=== PATIENT | female | born 1960 | race African-American/Black ===

== ENCOUNTER 2022-04-23 13:36 | Inpatient (IN) | payer OTHER ==
[2022-04-23 14:41] VITALS: BMI 27.8
[2022-04-23] MEDS ORDERED: chlordiazePOXIDE HCL 25 MG CAPSULE PO PRN ×2 (17:34→17:50)
[2022-04-23] MEDS ORDERED: ACETAMINOPHEN 325 MG TABLET (FP) PO PRN (17:50)
[2022-04-23] MEDS ORDERED: LOPERAMIDE HCL 2 MG CAPSULE PO PRN (17:50)
[2022-04-23] MEDS ORDERED: BENZOCAINE/MENTHOL (CHLORASEPTIC ) LOZENGE MM PRN (17:50)
[2022-04-23] MEDS ORDERED: IBUPROFEN 600 MG TABLET (FP) PO PRN (17:50)
[2022-04-23] MEDS ORDERED: BISMUTH SUBSALICYLATE 524 MG/30 ML PO PRN (17:50)
[2022-04-23] MEDS ORDERED: NALOXONE HCL (KLOXXADO) 8 MG SPRAY NS PRN (17:50)
[2022-04-23] MEDS ORDERED: METHOCARBAMOL 500 MG TABLET PO PRN (17:50)
[2022-04-23] MEDS ORDERED: hydrOXYzine PAMOATE 25 MG CAPSULE (FP) PO PRN (17:50)
[2022-04-23] MEDS ORDERED: MAG HYDROX/AL HYDROX/SIMETH 30 ML UNIT-DOSE CUP PO PRN (17:50)
[2022-04-23] MEDS ORDERED: DICYCLOMINE HCL 10 MG CAPSULE PO PRN (17:50)
[2022-04-23] MEDS ORDERED: ONDANSETRON *ODT* 4 MG TABLET SL PRN (17:50)
[2022-04-23] MEDS ORDERED: IBUPROFEN 400 MG TABLET (FP) PO PRN (17:50)
[2022-04-23] MEDS: THIAMINE HCL 100 MG TABLET (FP) PO SCH (22:13)
[2022-04-23] MEDS: MELATONIN 5 MG TABLETS PO SCH (22:13)
[2022-04-23] MEDS: chlordiazePOXIDE HCL 25 MG CAPSULE PO SCH (22:13)
[2022-04-23] MEDS ORDERED: chlordiazePOXIDE HCL 25 MG CAPSULE PO SCH (23:00)
[2022-04-24] MEDS: chlordiazePOXIDE HCL 25 MG CAPSULE PO SCH ×4 (05:58→22:16)
[2022-04-24] MEDS: ASPIRIN 81 MG CHEWABLE TABLETS PO SCH (10:16)
[2022-04-24] MEDS: amLODIPine BESYLATE 10 MG TABLET (FP) PO SCH (10:16)
[2022-04-24] MEDS: NICOTINE 21 MG/24 HOURS TOPICAL PATCH TD SCH (10:16)
[2022-04-24] MEDS: ATORVASTATIN CA 80 MG TABLET (FP) PO SCH (10:16)
[2022-04-24] MEDS: MELATONIN 5 MG TABLETS PO SCH (22:16)
[2022-04-24] MEDS: THIAMINE HCL 100 MG TABLET (FP) PO SCH (22:16)
[2022-04-25] MEDS: chlordiazePOXIDE HCL 25 MG CAPSULE PO SCH ×3 (06:08→17:15)
[2022-04-25] MEDS: ASPIRIN 81 MG CHEWABLE TABLETS PO SCH (10:27)
[2022-04-25] MEDS: amLODIPine BESYLATE 10 MG TABLET (FP) PO SCH (10:27)
[2022-04-25] MEDS: ATORVASTATIN CA 80 MG TABLET (FP) PO SCH (10:27)
[2022-04-25] MEDS: NICOTINE 21 MG/24 HOURS TOPICAL PATCH TD SCH (10:30)
[2022-04-25 17:16] VITALS: BP 120/83; PULSE 86; RESP 18; TEMP 98.2
[2022-04-26] MEDS ORDERED: chlordiazePOXIDE HCL 10 MG CAPSULE PO PRN
[2022-04-26] MEDS ORDERED: chlordiazePOXIDE HCL 10 MG CAPSULE PO SCH (05:00)
[2022-04-27] MEDS ORDERED: chlordiazePOXIDE HCL 10 MG CAPSULE PO SCH (05:00)
[2022-04-28] MEDS ORDERED: chlordiazePOXIDE HCL 10 MG CAPSULE PO ONE (05:00)
== END 2022-04-25 20:05 | disposition left against medical advice (07) | DRG 770 ==
LOC: YASAS 13:36 → Y6N 19:21
PROVIDERS: ADMIT Allergy & Immunology; ATTEND Surgery
PROC: HZ2ZZZZ Detoxification Services for Substance Abuse Treatment (ICD-10-PCS; principal; 2022-04-23)
DX: F10.230 Alcohol dependence with withdrawal, uncomplicated (principal); F17.210 Nicotine dependence, cigarettes, uncomplicated; F32.A Depression, unspecified; F41.9 Anxiety disorder, unspecified; I10 Essential (primary) hypertension; E78.5 Hyperlipidemia, unspecified; R26.89 Other abnormalities of gait and mobility; Z88.8 Allergy status to other drugs, medicaments and biological substances
CPT/HCPCS: C9803-CS; U0003; U0005